=== PATIENT | male | born 1955 | race Caucasian/White ===

== ENCOUNTER → 2021-04-30 09:40 | Outpatient (BNVA) | payer OTHER, SELFPAY | PROVIDERS: Family Provider Nurse Practitioner; PCP Nurse Practitioner; Referring Provider Nurse Practitioner; Visit Provider Specialist | DX: M19.012 Primary osteoarthritis, left shoulder (principal); M25.512 Pain in left shoulder | CPT/HCPCS: 73030 ==

== ENCOUNTER → 2022-05-27 13:41 | Outpatient (BNVA) | payer OTHER, SELFPAY | PROVIDERS: Family Provider Nurse Practitioner; PCP Nurse Practitioner; Visit Provider Internal Medicine | DX: R00.1 Bradycardia, unspecified (principal); R00.2 Palpitations; I10 Essential (primary) hypertension; Z87.891 Personal history of nicotine dependence | CPT/HCPCS: 99204 ==

== ENCOUNTER 2022-08-01 12:22 | Outpatient (CLI) | payer OTHER, SELFPAY ==
--- NOTE | 2022-08-01 12:45 | USCV_ITS ---
Chino Mcgarry Age: 66 Gender: M : 1955 Exam Date: 08/01/2022 13:32 Ordering Phys: Jonas Banegas M.D ([email or web address]) Technologist: Exam Location: [facility] – [place] Indication: afib BP: 142 / 71 HR: 64 Rhythm: Sinus Technical Quality: Adequate MEASUREMENTS (Male / Female) Normal Values 2D ECHO LV Diastolic Diameter PLAX 4.8 cm 4.2 - 5.9 / 3.9 - 5.3 cm LV Systolic Diameter PLAX 3.2 cm IVS Diastolic Thickness 1.5 cm 0.6 - 1.0 / 0.6 - 0.9 cm IVS Systolic Thickness 1.6 cm LVPW Diastolic Thickness 1.0 cm 0.6 - 1.0 / 0.6 - 0.9 cm LVPW Systolic Thickness 1.2 cm LVOT Diameter 2.1 cm LV Ejection Fraction 2D Teich 61.4 % LV Ejection Fraction MOD 2C 46.9 % LV Ejection Fraction 2C AL 47.3 % LA Diameter 4.1 cm LA Width 2.9 cm Aorta at Sinotubular Diameter 2.9 cm IVC Diameter 1.4 cm M-MODE Aortic Annulus Diameter 3.3 cm LA Ao Ratio MM 1.4 MV E Point Septal Separation 1.9 cm DOPPLER AV Peak Velocity 149.0 cm/s LVOT Peak Velocity 70.0 cm/s AV Area Cont Eq vti 1.7 cm squared AV Area Cont Eq pk 1.6 cm squared MV Area PHT 5.0 cm squared Mitral E to A Ratio 1.2 MV E' Velocity 36.5 cm/s Mitral E to MV E' Ratio 6.3 Mitral E to LV E' Lateral Ratio 4.7 Mitral E to LV E' Septal Ratio 10.0 TR Peak Velocity 292.7 cm/s TR Peak Gradient 34.3 mmHg TV Peak E Velocity 84.0 cm/s Right Atrial Pressure 3.0 mmHg Pulmonary Artery Systolic Pressu 37.3 mmHg FINDINGS Left Ventricle Left ventricle is normal size. LV systolic function is borderline normal with EF of 50 to 55%. No regional wall motion abnormalities are seen. Right Ventricle Normal in size and function Right Atrium Normal in size Left Atrium Dilated Mitral Valve Structurally normal mitral valve. Moderate mitral regurgitation. Aortic Valve Structurally normal aortic valve. Mild aortic regurgitation. No significant stenosis. Tricuspid Valve Trace tricuspid regurgitation. Insufficient TR jet to calculate RVSP. Pulmonic Valve Not well-visualized. Mild pulmonic regurgitation. Pericardium Normal Aorta Normal in size IVC Appears to be normal CONCLUSIONS LV systolic function is borderline normal with EF of 50 to 55%. Left atrial enlargement Moderate mitral regurgitation Mild aortic regurgitation. Trace tricuspid regurgitation No comparison studies are available Jonas Banegas MD (Electronically Signed) Final Date: 01 August 2022 20:23 S
== END 2022-08-01 12:23 | disposition home or self-care (01) ==
LOC: RAD 12:23
PROVIDERS: PCP Nurse Practitioner; Visit Provider Internal Medicine
DX: R00.2 Palpitations (principal); I48.91 Unspecified atrial fibrillation; I08.3 Combined rheumatic disorders of mitral, aortic and tricuspid valves
CPT/HCPCS: 93306

== ENCOUNTER → 2022-09-09 09:50 | Outpatient (BNVA) | payer OTHER, SELFPAY | PROVIDERS: PCP Nurse Practitioner; Visit Provider Nurse Practitioner Family | DX: I49.3 Ventricular premature depolarization (principal); I10 Essential (primary) hypertension; Z87.891 Personal history of nicotine dependence | CPT/HCPCS: 99214 ==

== ENCOUNTER → 2023-03-11 13:57 | Outpatient (BNVA) | payer OTHER, SELFPAY | PROVIDERS: PCP Nurse Practitioner; Visit Provider Internal Medicine | DX: R00.1 Bradycardia, unspecified (principal); I49.3 Ventricular premature depolarization; I10 Essential (primary) hypertension | CPT/HCPCS: 99214 ==

== ENCOUNTER → 2023-03-31 08:18 | Outpatient (BNVA) | payer OTHER, SELFPAY | PROVIDERS: PCP Nurse Practitioner; Referring Provider Nurse Practitioner; Visit Provider Specialist | DX: M17.0 Bilateral primary osteoarthritis of knee (principal) | CPT/HCPCS: 20610; 73560; 73565; 99213; J7326 ==

== ENCOUNTER → 2023-09-29 13:51 | Outpatient (BNVA) | payer OTHER, SELFPAY | PROVIDERS: PCP Nurse Practitioner; Visit Provider Specialist | DX: M17.0 Bilateral primary osteoarthritis of knee (principal); M25.562 Pain in left knee; M25.561 Pain in right knee | CPT/HCPCS: 73560; 73565 ==

== ENCOUNTER → 2023-10-01 13:52 | Outpatient (BNVA) | payer OTHER, SELFPAY | PROVIDERS: PCP Nurse Practitioner; Visit Provider Specialist | DX: M17.0 Bilateral primary osteoarthritis of knee (principal) | CPT/HCPCS: 20610; 99213; J7326 ==

== ENCOUNTER 2024-01-19 10:33 | Outpatient (RCR) | payer OTHER, SELFPAY | END 2024-02-10 23:59 | disposition home or self-care (01) | LOC: SPT 10:33 | PROVIDERS: Visit Provider Orthopaedic Surgery | DX: M17.11 Unilateral primary osteoarthritis, right knee (principal); Z47.1 Aftercare following joint replacement surgery; Z96.651 Presence of right artificial knee joint | CPT/HCPCS: 97110; 97161 ==

== ENCOUNTER 2024-02-11 06:00 | Outpatient (RCR) | payer OTHER, SELFPAY | END 2024-03-09 23:59 | disposition home or self-care (01) | LOC: SPT 06:00 | PROVIDERS: Visit Provider Orthopaedic Surgery | DX: M17.11 Unilateral primary osteoarthritis, right knee (principal); Z96.651 Presence of right artificial knee joint | CPT/HCPCS: 97110; 97112 ==

== ENCOUNTER → 2024-03-03 08:47 | Outpatient (BNVA) | payer OTHER, SELFPAY | PROVIDERS: PCP Nurse Practitioner; Visit Provider Nurse Practitioner Family | DX: I11.9 Hypertensive heart disease without heart failure (principal); I49.3 Ventricular premature depolarization; Z87.891 Personal history of nicotine dependence | CPT/HCPCS: 99214 ==

== ENCOUNTER 2024-08-02 15:22 | Outpatient (RCR) | payer OTHER, SELFPAY | END 2024-08-12 23:59 | disposition home or self-care (01) | LOC: SPT 15:22 | PROVIDERS: PCP Nurse Practitioner; Visit Provider Orthopaedic Surgery | DX: Z47.1 Aftercare following joint replacement surgery (principal); Z96.652 Presence of left artificial knee joint | CPT/HCPCS: 97110; 97161 ==

== ENCOUNTER 2024-08-13 06:00 | Outpatient (RCR) | payer OTHER, SELFPAY | END 2024-09-11 23:59 | disposition home or self-care (01) | LOC: SPT 06:00 | PROVIDERS: PCP Nurse Practitioner; Visit Provider Orthopaedic Surgery | DX: Z47.1 Aftercare following joint replacement surgery (principal); Z96.652 Presence of left artificial knee joint | CPT/HCPCS: 97110 ==

== ENCOUNTER 2024-09-12 06:00 | Outpatient (RCR) | payer OTHER, SELFPAY | END 2024-09-27 23:59 | disposition home or self-care (01) | LOC: SPT 06:00 | PROVIDERS: PCP Nurse Practitioner; Visit Provider Orthopaedic Surgery | DX: Z47.1 Aftercare following joint replacement surgery (principal); Z96.652 Presence of left artificial knee joint | CPT/HCPCS: 97110 ==

== ENCOUNTER → 2025-03-03 13:53 | Outpatient (BNVA) | payer OTHER, SELFPAY | PROVIDERS: PCP Nurse Practitioner; Visit Provider Internal Medicine | DX: R00.1 Bradycardia, unspecified (principal); I49.3 Ventricular premature depolarization; I10 Essential (primary) hypertension; Z79.82 Long term (current) use of aspirin; Z87.891 Personal history of nicotine dependence; R06.02 Shortness of breath | CPT/HCPCS: 93005; 99214 ==

== ENCOUNTER 2025-03-11 11:45 | Outpatient (CLI) | payer OTHER, SELFPAY ==
--- NOTE | 2025-03-11 11:51 | CTR_ITS ---
PROCEDURE INFORMATION: Exam: CT Abdomen And Pelvis Without And With Contrast Exam date and time: 03/11/2025 12:36 PM Age: 69 years old Clinical indication: Condition or disease; Kidney or ureter condition; Other: Parapelvic renal cysts; Prior surgery; Surgery date: 6+ months; Surgery type: Hernia TECHNIQUE: Imaging protocol: Computed tomography of the abdomen and pelvis without and with contrast. 3D rendering (Not supervised by radiologist): MIP and/or 3D reconstructed images were created by the technologist. Radiation optimization: All CT scans at this facility use at least one of these dose optimization techniques: automated exposure control; mA and/or kV adjustment per patient size (includes targeted exams where dose is matched to clinical indication); or iterative reconstruction. Contrast material: OMNI 350; Contrast volume: 100 ml; Contrast route: INTRAVENOUS (IV); COMPARISON: No relevant prior studies available. RADIATION DOSE METRICS: Total DLP (mGy-cm): 9.02 FINDINGS: Lungs: Lung bases are clear. Diaphragm: There is a small sliding-type hiatal hernia. There is a small sliding-type hiatal hernia. Liver: The liver is normal. Gallbladder and biliary ducts: The gallbladder is normal. There is no biliary dilation. There is no intrahepatic or extrahepatic bile duct dilation. Pancreas: There is mild atrophy of the pancreas. Spleen: The spleen is unremarkable. Adrenal glands: The adrenal glands are unremarkable. Kidneys and ureters: There are multiple small (up to 5 mm) stones in both kidneys. Renal parenchymal enhancement pattern is normal bilaterally. There are multiple simple bilateral parapelvic cysts measuring up to 3.5 cm. Right ureter is normal. Left proximal ureter is mildly asymmetrically dilated. There is a possible stricture in the distal left ureter visible on coronal series 12, image 35. No and extrinsic ureteral compression is seen. There is no hydronephrosis. Stomach and bowel: The stomach is nondistended, limiting assessment of wall thickness. The small bowel is nondilated. Severe pancolonic diverticulosis. There is no sign of diverticulitis. Appendix: The appendix is normal. Intraperitoneal space: There is no free air or significant intraperitoneal free fluid. Vasculature: Renal arteries are normal. Renal veins are normal. There is moderate aortic atherosclerotic disease. Celiac and superior mesenteric arteries demonstrate mild calcific plaque without stenosis at their origins. The portal, splenic and superior mesenteric veins are patent. Lymph nodes: There is no lymphadenopathy in the retroperitoneum, mesentery, pelvis or inguinal regions. Urinary bladder: The urinary bladder is nondistended. There is mild diffuse bladder wall thickening suggesting muscular hypertrophy. Reproductive: There is nonspecific moderate enlargement of the prostate gland. Bones/joints: There is moderate degenerative disease in the lumbar spine. There is mild degenerative disease of both hips. Soft tissues: There are small bilateral fat containing inguinal hernias. CT/CT abdomen pelvis wo/w [id number] IMPRESSION: 1. Simple bilateral parapelvic renal cysts. No follow-up imaging is recommended. 2. Bilateral nonobstructive nephrolithiasis. 3. Questionable left distal ureteral stricture. No hydronephrosis. 4. Incidental findings above. COMMENTS: Consistent with the [employer]'s Incidental Findings Committee white paper (J Am Heidi Radiol 2018): Any incidental renal lesion less than 1 cm or classified as too small to characterize, or any incidental cystic renal lesion characterized as simple-appearing, is likely benign. No follow-up imaging is recommended for these lesions per consensus recommendations based on imaging criteria.
[2025-03-11] MEDS: iohexol 350 mg/mL 500 mL Btl (per mL) IV (12:26)
[2025-03-11 12:51] LABS: Blood Urea Nitrogen 21 mg/dL (8-23)
== END 2025-03-11 11:46 | disposition home or self-care (01) ==
LOC: RAD 11:47
PROVIDERS: PCP Nurse Practitioner; Visit Provider Nurse Practitioner
DX: N28.1 Cyst of kidney, acquired (principal); N20.0 Calculus of kidney; R93.89 Abnormal findings on diagnostic imaging of other specified body structures; K44.9 Diaphragmatic hernia without obstruction or gangrene; K86.89 Other specified diseases of pancreas; K57.50 Diverticulosis of both small and large intestine without perforation or abscess without bleeding; I70.0 Atherosclerosis of aorta; K55.1 Chronic vascular disorders of intestine; I70.8 Atherosclerosis of other arteries; N32.89 Other specified disorders of bladder; N40.0 Benign prostatic hyperplasia without lower urinary tract symptoms; M51.369 Other intervertebral disc degeneration, lumbar region without mention of lumbar back pain or lower extremity pain; M16.0 Bilateral primary osteoarthritis of hip; K40.20 Bilateral inguinal hernia, without obstruction or gangrene, not specified as recurrent
CPT/HCPCS: 74178; 82565; 84520

== ENCOUNTER 2025-04-14 14:11 | Outpatient (CLI) | payer OTHER, SELFPAY ==
--- NOTE | 2025-04-14 14:45 | USCV_ITS ---
Chino Mcgarry Age: 69 Gender: M : 1955 Exam Date: 04/14/2025 14:37 Ordering Phys: Jonas Banegas M.D ([email or web address]) Technologist: [place] [facility]ication: cp sob BP: 132 / 67 HR: 61 Rhythm: Sinus Technical Quality: Adequate MEASUREMENTS (Male / Female) Normal Values 2D ECHO LV Diastolic Diameter PLAX 5.5 cm 4.2 - 5.9 / 3.9 - 5.3 cm IVS Diastolic Thickness 1.4 cm 0.6 - 1.0 / 0.6 - 0.9 cm IVS Systolic Thickness 1.6 cm LVPW Diastolic Thickness 1.4 cm 0.6 - 1.0 / 0.6 - 0.9 cm LVPW Systolic Thickness 1.6 cm LVOT Diameter 2.1 cm LV Ejection Fraction 2D Teich 65.5 % LV Ejection Fraction MOD 4C 53.7 % LV Ejection Fraction MOD 2C 56.2 % LV Ejection Fraction 2C AL 55.7 % LA Diameter 4.8 cm RA Systolic Volume 4C AL 66.4 ml RA Systolic Volume 4C MOD 64.5 ml Aorta at Sinotubular Diameter 3.4 cm IVC Diameter 1.7 cm M-MODE LA Ao Ratio MM 1.5 AV Cusp Separation MM 2.3 cm DOPPLER AV Peak Velocity 151.0 cm/s LVOT Peak Velocity 92.0 cm/s AV Area Cont Eq vti 2.2 cm squared AV Area Cont Eq pk 2.1 cm squared MV Peak Velocity 78.0 cm/s MV Area PHT 2.6 cm squared Mitral E to A Ratio 0.8 TV Peak Velocity 203.0 cm/s TR Peak Velocity 245.0 cm/s TR Peak Gradient 24.0 mmHg TV Peak E Velocity 76.0 cm/s PV Peak Velocity 91.0 cm/s FINDINGS Left Ventricle Left ventricle is mildly dilated. LV systolic function is normal with EF of 50-55%. No regional wall motion abnormalities are seen. Grade 1 diastolic dysfunction Right Ventricle Normal in size and function. Right Atrium Normal in size. Left Atrium Dilated Mitral Valve Structurally normal mitral valve. Mild mitral regurgitation Aortic Valve Structurally normal aortic valve. Trace aortic regurgitation. No significant stenosis Tricuspid Valve Mild tricuspid regurgitation. Pulmonary artery systolic pressure is normal Pulmonic Valve Not well visualized Pericardium Normal Aorta Normal in size IVC Appears to be normal CONCLUSIONS LV systolic function is normal with EF of 50-55%. Grade 1 diastolic dysfunction. Left atrial dilation Mild mitral regurgitation Trace aortic regurgitation Mild tricuspid regurgitation Compared to prior echocardiogram from 2021, no significant changes are seen Jonas Banegas MD (Electronically Signed) Final Date: 23 April 2025 21:39 S
== END 2025-04-14 14:12 | disposition home or self-care (01) ==
LOC: RAD 14:13
PROVIDERS: PCP Nurse Practitioner; Visit Provider Internal Medicine
DX: R06.02 Shortness of breath (principal); R93.1 Abnormal findings on diagnostic imaging of heart and coronary circulation; I34.0 Nonrheumatic mitral (valve) insufficiency; I07.1 Rheumatic tricuspid insufficiency
CPT/HCPCS: 93306